=== PATIENT | female | born 1930 | race African-American/Black ===

== ENCOUNTER 2018-01-23 13:59 | Inpatient (IN) | payer OTHER, MEDICAID ==
[~2018-01-23] VITALS: Ht 165.1 cm; Wt 65.3 kg
[2018-01-23] MEDS ORDERED: SODIUM CHLORIDE 0.9% 500 ML IV ONE (14:37)
[2018-01-23] MEDS ORDERED: ONDANSETRON HCL 4MG/2ML VIAL IV ONE ×2 (14:45→17:00)
[2018-01-23] MEDS ORDERED: MORPHINE SULFATE 4 MG/ML CPJ (NOT FOR IM USE) IV ONE ×2 (14:45→17:00)
[2018-01-23 15:06] LABS: HEMATOCRIT. 36.5 % (36.0-48.0); MEAN CORPUSCULAR HEMOGLOBIN 29.8 pg (28.0-32.0); MEAN CORPUSCULAR VOLUME 90.7 fL (81.0-99.0); MEAN PLATELET VOLUME 8.4 fl (7.4-10.4); PLATELET 642 x1000/uL (130-400); RED BLOOD CELL COUNT 4.02 mill/uL (4.2-5.4); RED CELL DISTRIBUTION WIDTH 16.9 % (11.6-14.6)
[2018-01-23 15:17] LABS: INR 1.2; PROTHROMBIN TIME 12.7 sec (9.4-11.6)
[2018-01-23 15:20] LABS: AMMONIA < 25 uMol/L (<32)
[2018-01-23 15:23] LABS: CHLORIDE 104 mEq/L (98-107); ETHANOL BLOOD < 10 mg/dL
[2018-01-23 15:29] LABS: CREATINE KINASE 85 IU/L (26-192); TROPONIN I < 0.02 ng/mL (0.00-0.04)
[2018-01-23] MEDS ORDERED: LEVOFLOXACIN 750MG PREMIX 150 ML IV ONE (15:30)
[2018-01-23] MEDS ORDERED: VANCOMYCIN 1 G PREMIX 200 ML IV SCH (15:45)
[2018-01-23 16:41] LABS: PLATELET ESTIMATE MARKEDLY INCREASED
[2018-01-23] MEDS ORDERED: ZOLPIDEM TARTRATE 5MG TABLET PO PRN (17:00)
[2018-01-23] MEDS ORDERED: DOCUSATE SODIUM 100MG CAPSULE PO PRN (17:00)
[2018-01-23] MEDS ORDERED: ONDANSETRON HCL 4MG/2ML VIAL IV PRN (17:00)
[2018-01-23] MEDS ORDERED: MAGNESIUM/ALUMINUM HYDROXIDE/SIMETHICONE 30ML UDC PO PRN (17:00)
[2018-01-23] MEDS ORDERED: DIPHENHYDRAMINE 50MG/ML VIAL IV PRN (17:00)
[2018-01-23] MEDS ORDERED: ACETAMINOPHEN 325MG TABLET PO PRN (17:00)
[2018-01-23] MEDS ORDERED: NA PHOS,M-B/NA PHOS,DI-BA ENEMA 118ML PR PRN (17:00)
[2018-01-23] MEDS ORDERED: KETOROLAC 15MG/ML VIAL IV ONE (17:00)
[2018-01-23] MEDS ORDERED: IPRATROPIUM/ALBUTEROL 0.5-3(2.5)MG/3ML NEB INH PRN (17:00)
[2018-01-23] MEDS ORDERED: GUAIFENESIN 200MG/10ML SUGAR FREE UDC PO PRN (17:00)
[2018-01-23] MEDS ORDERED: TRAMADOL 50MG TABLET PO PRN (17:00)
[2018-01-23] MEDS ORDERED: CLONIDINE 0.1MG TABLET PO PRN (17:00)
[2018-01-23 17:40] LABS: HDL CHOLESTEROL 19 mg/dL (40-59); LDL CHOLESTEROL 139 mg/dL (5-100); T4 FREE 1.36 ng/dL (0.76-1.46)
[2018-01-23 22:15] VITALS: BP 116/68
[2018-01-23 22:21] LABS: CREATINE KINASE 72 IU/L (26-192); TROPONIN I < 0.02 ng/mL (0.00-0.04)
[2018-01-23 22:22] LABS: CREATINE KINASE MB FRACTION 1.4 ng/mL (0.5-3.6)
[2018-01-23] MEDS ORDERED: FAMOTIDINE 20MG/2ML VIAL IV SCH (22:30)
[2018-01-23] MEDS ORDERED: ENOXAPARIN 40MG/0.4ML SYR SUBCUT SCH (22:45)
[2018-01-23 23:05] VITALS: BP 116/68
[2018-01-23] MEDS: LISINOPRIL 20MG TABLET PO SCH (23:41)
[2018-01-23] MEDS: MORPHINE SULFATE 4 MG/ML CPJ (NOT FOR IM USE) IV PRN (23:42)
[2018-01-24] VITALS: BP 131/79
[2018-01-24] MEDS: LORAZEPAM 0.5MG TABLET PO PRN ×2 (01:12→15:21)
[2018-01-24 04:00] VITALS: BP 121/69
[2018-01-24] MEDS: MORPHINE SULFATE 4 MG/ML CPJ (NOT FOR IM USE) IV PRN ×3 (04:34→17:42)
[2018-01-24] MEDS ORDERED: LEVOTHYROXINE SODIUM 25MCG TABLET PO SCH (06:45)
[2018-01-24 08:00] VITALS: BP 162/82
[2018-01-24] MEDS: LISINOPRIL 20MG TABLET PO SCH (08:48)
[2018-01-24] MEDS ORDERED: ASPIRIN 325MG EC TABLET PO SCH (09:00)
[2018-01-24] MEDS ORDERED: CEFTRIAXONE 1 G PREMIX 50 ML IV SCH (09:00)
[2018-01-24 09:02] LABS: CREATINE KINASE 105 IU/L (26-192); CREATINE KINASE MB FRACTION 2.1 ng/mL (0.5-3.6); TROPONIN I < 0.02 ng/mL (0.00-0.04)
[2018-01-24] MEDS ORDERED: METRONIDAZOLE 500 MG PREMIX 100 ML IV SCH (12:00)
[2018-01-24] MEDS ORDERED: LEVOFLOXACIN 250MG PREMIX 50 ML IV SCH ×2 (15:00→16:00)
[2018-01-24 17:59] VITALS: BP 150/83
[2018-01-24 20:00] VITALS: BP 139/62
[2018-01-24 20:48] VITALS: BP 150/78
== END 2018-01-23 21:30 | disposition short-term general hospital (02) | DRG 871 ==
LOC: ER 14:09 → 5WST 16:35 → EDBEDREQ 16:39 → EDBEDREQTM 16:39 → ENRESERV 20:05
PROVIDERS: ADMIT Internal Medicine; ATTEND Internal Medicine
DX: A41.9 Sepsis, unspecified organism (principal); E43 Unspecified severe protein-calorie malnutrition; G92 Toxic encephalopathy; S32.19XA Other fracture of sacrum, initial encounter for closed fracture; K57.32 Diverticulitis of large intestine without perforation or abscess without bleeding; M16.11 Unilateral primary osteoarthritis, right hip; W18.39XA Other fall on same level, initial encounter; E03.9 Hypothyroidism, unspecified; I10 Essential (primary) hypertension; Y93.89 Activity, other specified; Y92.89 Other specified places as the place of occurrence of the external cause; Y99.8 Other external cause status; Z68.24 Body mass index [BMI] 24.0-24.9, adult
CPT/HCPCS: 36415; 70450; 71045; 72192; 73502; 80053; 80061; 82140; 82550; 82553; 83036; 83605; 83690; 83880; 84439; 84443; 84484; 85025; 85610; 87040; 93005; 96365; 96366; 96368; 96375; 96376; 99285; G0482; J0696; J1200; J1650; J1885; J1956; J2270; J2405; J3370; J3490; J7030; J7040